=== PATIENT | female | born 1970 | race Caucasian/White ===

== ENCOUNTER 2018-08-11 22:17 | Emergency (ER) | payer MEDICAID ==
[2018-08-11 22:27] VITALS: RESP 20
[2018-08-11 23:40] VITALS: TEMP 98.2
--- NOTE | 2018-08-11 23:57 | C.PDOC ---
History Of Present Illness 48 year old female presents to the ED c/o feeling anxious, patient has not taken her Xanax for the past 4 days. Patient has a prescription filled for 60 pills of Xanax on 07/13/18 (monthly prescription). Patient also states she does not remember if she took her blood pressure medications today. Patient speaking in complete sentences. Patient denies fever, chills, headache, CP, SOB, weakness, numbness. Time Seen by Provider: 08/11/18 23:24 Chief Complaint (Nursing): Anxiety History Per: Patient History/Exam Limitations: no limitations Onset/Duration Of Symptoms: Days Current Symptoms Are (Timing): Still Present Suicide/Self Injury Attempted (Context): None Associated Symptoms: Anxiety. denies: Depression, Suicidal Thoughts, Suicidal Plan Recent travel outside of the [place]: No Additional History Per: Patient Past Medical History Reviewed: Historical Data, Nursing Documentation, Vital Signs Vital Signs: Last Vital Signs Temp 98.2 F 08/11/18 23:40 Pulse 83 08/11/18 23:40 Resp 20 08/11/18 23:40 BP 178/108 H 08/11/18 23:40 Pulse Ox 96 08/11/18 23:40 - Medical History PMH: Anxiety, COPD, Diabetes, HTN, Hypercholesterolemia Surgical History: No Surg Hx Family History: States: Unknown Family Hx - Social History Hx Tobacco Use: No Hx Alcohol Use: No Hx Substance Use: No - Immunization History Hx Tetanus Toxoid Vaccination: Yes Review Of Systems Constitutional: Negative for: Fever, Chills Cardiovascular: Negative for: Chest Pain Respiratory: Negative for: Cough, Shortness of Breath Gastrointestinal: Negative for: Nausea, Vomiting, Abdominal Pain Skin: Negative for: Rash Neurological: Negative for: Weakness, Numbness Psych: Positive for: Anxiety Physical Exam - Physical Exam Appears: Non-toxic, No Acute Distress Skin: Warm, Dry Head: Normacephalic Eye(s): bilateral: Normal Inspection Neck: Supple Chest: Symmetrical Cardiovascular: Rhythm Regular Respiratory: No Rales, No Rhonchi, No Wheezing Gastrointestinal/Abdominal: Soft, No Tenderness, No Guarding, No Rebound Extremity: Bilateral: Atraumatic, Normal Color And Temperature, Normal ROM Neurological/Psych: Oriented x3, Normal Speech, Normal Cognition Gait: Steady ED Course And Treatment O2 Sat by Pulse Oximetry: 96 (ON RA) Pulse Ox Interpretation: Normal Progress Note: Plan: - Xanax 1 mg PO Disposition Counseled Patient/Family Regarding: Studies Performed, Diagnosis, Need For Followup - Disposition Disposition: HOME/ ROUTINE Disposition Time: 23:55 Condition: FAIR Additional Instructions: Please take your medications and follow up with your doctor Instructions: Anxiety, Adult (DC) Forms: [employer] (Bengali) - Clinical Impression Clinical Impression: Anxiety - Scribe Statement The provider has reviewed the documentation as recorded by the Scribe Garret Flores All medical record entries made by the Scribe were at my direction and perso alex dictated by me. I have reviewed the chart and agree that the record accurately reflects my personal performance of the history, physical exam, medical decision making, and the department course for this patient. I have also personally directed, reviewed, and agree with the discharge instructions and disposition.
[2018-08-12 00:02] VITALS: PULSE 79
[2018-08-12 00:03] VITALS: BP 161/94
[2018-08-12 00:05] VITALS: O2SAT 96
== END 2018-08-12 00:03 | disposition home or self-care (01) ==
LOC: C.ER 22:17
DX: F41.9 Anxiety disorder, unspecified (principal)